=== PATIENT | female | born 1995 | race African-American/Black ===

== ENCOUNTER 2022-02-11 01:49 | Emergency (ER) | payer OTHER ==
[2022-02-11 04:20] LABS: BASOPHIL 0.4 % (0-2); EOSINOPHIL 2.9 % (0-5); HCT 39.6 % (37.0-47.0); HGB 12.4 g/dl (12.5-16.0); LYMPHOCYTE 45.5 % (15-48); MCH 28.9 pg (25.0-31.0); MCHC 31.3 g/dL (32.0-36.0); MCV 92.3 fL (78.0-100.0); MONOCYTE 7.9 % (0-12); MPV 12.1 fL (6.0-9.5); NRBC 0; PLT 219 K/uL (150-400); RBC 4.29 M/uL (4.20-5.40); RDW 13.8 % (11.5-14.0); WBC 15.9 K/uL (4.0-10.5)
[2022-02-11 05:00] LABS: ALBUMIN 3.8 g/dL (3.4-5.0); BILIRUBIN - TOTAL 0.1 mg/dL (0.2-1.0); CREATININE 0.93 mg/dL (0.51-0.95); GLOBULIN (CALCULATION) 3.5 g/dL; POTASSIUM 3.1 mmol/L (3.5-5.1); TOTAL PROTEIN 7.3 g/dL (6.4-8.2)
== END 2022-02-11 06:25 | disposition home or self-care (01) ==
LOC: FER 01:49 → EDBD 01:49 → FER 01:49
PROVIDERS: Internal Medicine
DX: F10.129 Alcohol abuse with intoxication, unspecified (principal); G93.41 Metabolic encephalopathy; Y90.8 Blood alcohol level of 240 mg/100 ml or more
CPT/HCPCS: 36415; 80053; 85025; G0480; J2310; J7120